=== PATIENT | female | born 1955 | race Caucasian/White ===

== ENCOUNTER 2023-03-13 09:19 | Day surgery (SDC) | payer MEDICARE, SELFPAY ==
--- NOTE | 2023-03-13 09:27 | US_ITS ---
[address] [address] Patient Name: LEEANNE GALLEGOS MRN: [id number] date: 1955 Sex: F Assigned Patient Location: [place] Current Patient Location: Accession/Order Number: [id number] Exam Date: 03/13/2023 09:30 Report Date: 03/13/2023 12:51 At the request of: STEVE CARRASCO Procedure: US biopsy thyroid EXAMINATION: US biopsy thyroid HISTORY: Thyroid Nodule COMPARISON: No relevant comparison available. TECHNIQUE: After obtaining informed consent, an ultrasound-guided biopsy was performed in the usual sterile manner. FINDINGS: IMAGING: Ultrasound BIOPSY NEEDLE: 25-gauge, 2 inch SPECIMEN TYPE, #, LOCATION: 3 fine-needle aspirates right thyroid 1.7 cm nodule MEDICATION: 2 cc 1% buffered lidocaine COMPLICATIONS: None. LABORATORY: Pathology and genetic testing OTHER: Negative. US/US biopsy thyroid IMPRESSION: Uneventful ultrasound guided biopsy. The patient was instructed to obtain follow up care and biopsy results from the referring physician. Electronically authenticated by: QUENTIN STEELE Date: 03/13/2023 12:51
[2023-03-13 09:30] VITALS: BP 136/65; PULSE 69; O2SAT 94
[2023-03-13] MEDS: LIDOCAINE HCL 10 ML, SODIUM BICARBONATE 1 MEQ INJ (10:45)
--- NOTE | 2023-03-13 11:37 | SUR.PREOP ---
02/27 Instructed pt on procedure, date, time. Made pt aware to hold ASA x 4 days and Eliquis x 2 days prior to biopsy.
== END 2023-03-13 11:10 | disposition home or self-care (01) ==
LOC: US 09:19
PROVIDERS: Radiology Diagnostic Radiology; Visit Provider Otolaryngology
DX: E04.0 Nontoxic diffuse goiter (principal)
CPT/HCPCS: 10005; 88173